=== PATIENT | male | born 1990 | race Caucasian/White ===

== ENCOUNTER 2023-06-05 22:43 | Emergency (ER) | payer SELFPAY ==
[2023-06-05] MEDS ORDERED: Tetracaine 0.5% PF 4 ML BOT ONE (22:54)
[2023-06-05] MEDS ORDERED: Proparacaine 0.5% Opth 15 ML BOT ONE (22:54)
[2023-06-05] MEDS ORDERED: Fluorescein Opthalmic Strip ONE (22:55)
[2023-06-05] MEDS ORDERED: Naproxen 500 MG TAB ONE (23:16)
[2023-06-05] MEDS ORDERED: Boostrix 0.5 ML (Tdap) VIAL (>/=7 yrs of age) ONE (23:16)
== END 2023-06-05 23:40 | disposition home or self-care (01) ==
LOC: NAV ERS 22:43
DX: T15.92XA Foreign body on external eye, part unspecified, left eye, initial encounter (principal); F17.210 Nicotine dependence, cigarettes, uncomplicated
CPT/HCPCS: 65220; 90471; 90715